=== PATIENT | male | born 1975 | race Caucasian/White ===

== ENCOUNTER → 2017-01-21 | Outpatient (CLI) | payer OTHER ==
[~2017-01-21] MED LIST: DAPS25TA2 PO; DOXY100C2 PO; MULT-608 PO; NEOM28.34 TP; SULF1TAB38 PO; SUMA100T2; SUMA1TAB; TRAM-21 PO; TRM50T PO; unknown antibiotic
--- NOTE | 2017-01-21 17:40 | Diagnostic Imaging Report ---
PROCEDURE: MRI left joint lower extremity without contrast. TECHNIQUE: Multiplanar, multisequence non contrast-enhanced MRI of the left lower extremity was accomplished. INDICATION: The patient was walking while reading meters; by the end of the day, he was unable to walk due to pain in posterior left ankle, Achilles tendon tear. FINDINGS: Noncontrast imaging of the left ankle demonstrates normal signal intensity in the Achilles tendon. No evidence of a tear is present. No joint effusion is present. Normal signal intensity is present in the osseous structures. Cartilage appears normal. The ligaments have a normal appearance. IMPRESSION: Normal MRI of the ankle. Dictated by: Dictated on workstation # [id number]
== END ==
LOC: RAD 16:37
PROVIDERS: ATTEND Internal Medicine
DX: M25.572 Pain in left ankle and joints of left foot (principal)
CPT/HCPCS: 73721

== ENCOUNTER 2018-05-05 13:46 | Emergency (ER) | payer OTHER ==
[~2018-05-05] VITALS: Ht 177.8 cm; Wt 86.2 kg
[2018-05-05] MEDS ORDERED: morphine INJ 10 MG/ML 1ML (SYR OR VIAL) ONE (13:58)
--- NOTE | 2018-05-05 14:06 | ED Upper Extremity ---
General Chief Complaint: Laceration Stated Complaint: LEFT THUMB/INDEX FINGER/PALM LAC Source: patient Exam Limitations: no limitations (JAHAIRA MONTAGUE MD) History of Present Illness Date Seen by Provider: May 05, 2018 Time Seen by Provider: 14:05 Initial Comments The patient is a 42-year-old white male who presents to the emergency room after suffering a table saw injury to the left hand. He stated that he believed that to be the left thumb primarily involved. Onset: just prior to arrival Pain/Injury Location: left thumb, left 2nd finger, left 3rd finger (JAHAIRA MONTAGUE MD) Allergies and Home Medications Allergies Coded Allergies: cephalexin (Unverified Allergy, Mild, 04/14/09) amoxicillin (Unverified Allergy, Unknown, 05/05/18) clavulanic acid (Unverified Allergy, Unknown, 05/05/18) Home Medications Dapsone 25 Mg Tablet, 2 EACH PO BID Prescribed by: ROBBIE CASTILLO on 06/16/131740 Doxycycline Hyclate 100 Mg Capsule, 1 EACH PO BID Prescribed by: ROBBIE CASTILLO on 06/16/131740 Multivitamins 1 Tab Tablet, 1 TAB PO DAILY, (Reported) Neomycn/Baci Zn/Pmyx Bs/Pramox 28.3 Gm Oint..gm., 28.3 GM TP BID, (Reported) Tramadol Hcl 50 Mg Tab, 50 MG PO Q4H Prescribed by: ROBBIE CASTILLO on 06/16/131740 Patient Home Medication List Home Medication List Reviewed: Yes (JAHAIRA MONTAGUE MD) Constitutional: see HPI EENTM: no symptoms reported Respiratory: no symptoms reported Cardiovascular: no symptoms reported Gastrointestinal: no symptoms reported (JAHAIRA MONTAGUE MD) Past Vqjcmvd-Bxqpqx-Quzttq Hx Immunizations Up To Date Tetanus Booster (TDap): Less than 5yrs (JAHAIRA MONTAGUE MD) Past Medical History Reproductive Disorders: No (JAHAIRA MONTAGUE MD) Physical Exam Vital Signs Vital Signs - First Documented 05/05/18 13:50 Temp 97.4 Pulse 90 Resp 17 B/P (MAP) 165/115 (132) O2 Delivery Room Air (MICHAEL LIAO APRN) Vital Signs Capillary Refill : (JAHAIRA MONTAGUE MD) General Appearance: other (the patient is pale and hyperventilating to a degree ) HEENT: normal ENT inspection Neck: full range of motion Cardiovascular: regular rate, rhythm, no edema, no gallop, no JVD, no murmur Respiratory: chest non-tender, lungs clear, normal breath sounds, no respiratory distress Comments The patient's home apply dressings were removed. This increased his pain and bleeding. The left thumb showed to be hanging distally by a skin flap. There was a laceration to the left thenar eminence which did not appear so deep. At least fingers 2 and 3 more involved as well. Exam was discontinued at that point in order to achieve better pain control. Mr. Liao is going to attempt a wrist block in order that we might better visualize the other wounds. (JAHAIRA MONTAGUE MD) Procedures/Interventions using 7 mL ofbupivacaine and 7 mL of lidocaine mixed one-to-one I did a left radial nerve block at the wrist, left median nerve block at the wrist, left ulnar nerve block at the wrist. I then did a digital block of the thumb and the pointer finger. This achieved wonderful pain control. (MICHAEL LIAO APRN) Progress/Results/Core Measures Results/Orders My Orders Orders - MICHAEL LIAO APRN Lidocaine 2% Injection 20 Ml (Xylocaine (05/05/18 14:30) Bupivacaine 0.5% Injection (Sensorcaine (05/05/18 14:30) (MICHAEL LIAO APRN) Medications Given in ED Current Medications Medications Dose Ordered Sig/Lainey Route Start Time Stop Time Status Last Admin Dose Admin Bupivacaine HCl 30 ml ONCE ONCE INJ 05/05/18 14:30 05/05/18 14:31 DC 05/05/18 14:33 30 ML Lidocaine HCl 20 ml ONCE ONCE INJ 05/05/18 14:30 05/05/18 14:31 DC 05/05/18 14:33 20 ML Morphine Sulfate 10 mg STK-MED ONCE .ROUTE 05/05/18 13:58 05/05/18 14:00 DC 05/05/18 14:02 10 MG (MICHAEL LIAO APRN) Vital Signs/I&O 05/05/18 13:50 Temp 97.4 Pulse 90 Resp 17 B/P (MAP) 165/115 (132) O2 Delivery Room Air (MICHAEL LIAO APRN) Departure Communication (Admissions) After initial evaluation. Mr. Liao did digital and risk blocks. We were then better able to evaluate the hand. The most severe wound appeared to be that that at the interphalangeal joint of the thumb. It appeared that the wound at the PIP joint on the index finger had gotten extensor tendons. The thumb exhibited blanching and capillary refill at the tip. The index finger did also. Subsequently significant bleeding occurred at the wound on the index finger. This required a digital tourniquet. And the bleeding was controlled at least temporarily. The hand was cleaned up and x-rayed. The gross findings appeared to be true with extensive damage done at the IP joint on the thumb. Subsequently attempts were made to find a hand surgeon. Ultimately I spoke to Dr. Ardon at [place]. He had suggested that splinting and dressing methods. Reexamination showed that bleeding to continue to be a problem and I then talked to Dr. ESPARZA again and he came to the ER to evaluate the situation he agreed that it would be a much better circumstance to arrange surgery tonight and he called Dr. Ardon and after further discussion it was agreed that he would be transferred for surgery tonight at [facility]. 174 (JAHAIRA MONTAGUE MD) Impression Primary Impression: table saw lacerations to left hand Disposition: 02 XFER SHT-TRM HOSP Condition: Stable/Unchanged Transfer Time Spoke to Accepting Phy: 16:40 Transfer Progress Notes After Dr. ESPARZA discussed transfer with Dr. Ardon at [place] it was agreed that he would be transferred by ambulance with anticipated surgery directly on arrival at [place]. Method of Transfer: EMS (JAHAIRA MONTAGUE MD) Departure-Patient Inst. Referrals: KYLAH GONZALEZ DO (PCP/Family) Primary Care Physician JAHAIRA MONTAGUE MD May 05, 2018 14:06 MICHAEL LIAO APRN May 05, 2018 14:47
[2018-05-05] MEDS ORDERED: LIDOCAINE 2% 20 ML (XYLOCAINE) VIAL INJ ONE (14:30)
[2018-05-05] MEDS ORDERED: BUPIVACAINE 0.5% 30 ML (SENSORCAINE) VIAL INJ ONE ×2 (14:30→16:45)
[2018-05-05] MEDS ORDERED: fentaNYL INJECTION 100 MCG/2 ML AMP ONE (14:36)
[2018-05-05] MEDS ORDERED: NS IV 1000 ML 1,000 ML ONE (14:36)
[2018-05-05] MEDS ORDERED: fentaNYL INJECTION 100 MCG/2 ML AMP IVP PRN ×2 (14:45→16:00)
[2018-05-05] MEDS ORDERED: NS IV 1000 ML 1,000 ML IV SCH ×2 (14:45→17:37)
--- NOTE | 2018-05-05 15:42 | Diagnostic Imaging Report ---
INDICATION: Injury to left hand. FINDINGS: Single AP view of the left hand obtained. There is dislocation of the second PIP joint with apparent soft tissue laceration. There is soft tissue gas over the space between the first and second metatarsals. There is a fracture dislocation of the first distal phalanx at the interphalangeal joint. There is no radiopaque foreign body. IMPRESSION: Dislocation of the second PIP joint with soft tissue laceration. Fracture dislocation of the first distal phalanx at the interphalangeal joint. Dictated by: Dictated on workstation # [id number]
[2018-05-05 17:30] LABS: BASOPHILS % (AUTO) 0 % (0-10); EOSINOPHILS % (AUTO) 1 % (0-10); LYMPHOCYTES # (AUTO) 2.1 X 10^3 (1.0-4.0); LYMPHOCYTES % (AUTO) 37 % (12-44); MEAN CORPUSCULAR HGB CONC 35 G/DL (32-36); MEAN CORPUSCULAR VOLUME 94 FL (80-99); MEAN PLATELET VOLUME 10.5 FL (7.4-10.4); MONOCYTES # (AUTO) 0.2 X 10^3 (0.0-1.0); MONOCYTES % (AUTO) 3 % (0-12); NEUTROPHILS # (AUTO) 3.2 X 10^3 (1.8-7.8); NEUTROPHILS % (AUTO) 59 % (42-75); RED CELL DISTRIBUTION WIDTH 12.4 % (10.0-14.5)
[2018-05-05 17:36] LABS: HEMATOCRIT 36 % (40-54); HEMOGLOBIN 12.5 G/DL (13.3-17.7); MEAN CORPUSCULAR HEMOGLOBIN 32 PG (25-34); PLATELET COUNT 24 10^3/uL (130-400); RED BLOOD COUNT 3.85 10^6/uL (4.35-5.85); WHITE BLOOD COUNT 6.1 10^3/uL (4.3-11.0)
[2018-05-05 17:48] VITALS: BP 108/73
--- NOTE | 2018-05-05 18:19 | Consultation ---
History of Present Illness History of Present Illness Patient Consulted On(kaia/time) 05/05/18 18:14 Time Seen by Provider: 17:01 History of Present Illness Surgery asked to consult regarding laceration to left hand. HPI per ED: The patient is a 42-year-old white male who presents to the emergency room after suffering a table saw injury to the left hand. He stated that he believed that to be the left thumb primarily involved. Onset: just prior to arrival Pain/Injury Location: left thumb, left 2nd finger, left 3rd finger When I saw pt he had already had wrist and digit blocks and he had a BP cuff on forearm acting as a tourniquet. His pain was mostly controlled but still needing Fentanyl. Pt stated he felt a little sweaty, but otherwise ok. He states he was cutting a board and not sure whether it jumped or not and then cut his hand. His family members said there was a lot of blood at home and ER nurse states they cleaned up two large pools of blood from floor already. He stated he has no feeling in the first three digits of his left hand; not sure whether this was before or after anesthesia used to block area. Pt has no other complaints. Allergies and Home Medications Allergies Coded Allergies: cephalexin (Unverified Allergy, Mild, 04/14/09) amoxicillin (Unverified Allergy, Unknown, 05/05/18) clavulanic acid (Unverified Allergy, Unknown, 05/05/18) Home Medications Dapsone 25 Mg Tablet, 2 EACH PO BID Prescribed by: ROBBIE CASTILLO on 06/16/131740 Doxycycline Hyclate 100 Mg Capsule, 1 EACH PO BID Prescribed by: ROBBIE CASTILLO on 06/16/131740 Multivitamins 1 Tab Tablet, 1 TAB PO DAILY, (Reported) Neomycn/Baci Zn/Pmyx Bs/Pramox 28.3 Gm Oint..gm., 28.3 GM TP BID, (Reported) Tramadol Hcl 50 Mg Tab, 50 MG PO Q4H Prescribed by: ROBBIE CASTILLO on 06/16/131740 Patient Home Medication List Home Medication List Reviewed: Yes Past Rtjodtf-Ugvcur-Ycyzyk Hx Patient Social History Alcohol Use: Occasionally Uses Recreational Drug Use: Yes (NONE IN 14 YRS) 2nd Hand Smoke Exposure: No Recent Foreign Travel: No Contact w/Someone Who Travel: No Recent Infectious Disease Expo: No Immunizations Up To Date Tetanus Booster (TDap): Less than 5yrs Surgeries History of Surgeries: Yes Respiratory History of Respiratory Disorde: No Cardiovascular History of Cardiac Disorders: No Neurological History of Neurological Disord: No Reproductive System Hx Reproductive Disorders: No Gastrointestinal History of Gastrointestinal Di: No Musculoskeletal History of Musculoskeletal Dis: Yes (R SHOULDER) Endocrine History of Endocrine Disorders: No Cancer History of Cancer: No Blood Transfusions History of Blood Disorders: No Family Medical History Significant Family History: Diabetes (father) Review of Systems-General Constitutional: chills, diaphoresis EENTM: No blurred vision, No eye pain, No mouth pain, No mouth swelling Respiratory: No cough, No dyspnea on exertion Cardiovascular: No chest pain, No edema, No palpitations Gastrointestinal: No abdominal pain, No constipation, No diarrhea Genitourinary: No dysuria, No frequency, No hematuria Musculoskeletal: see HPI Skin: No change in color, No change in hair/nails Psychiatric/Neurological: Denies Headache, Denies Pre-Existing Deficit, Denies Seizure, Denies Tremors Other Pt denies any history of abnormal bleeding or bruising, denies any heat or cold intolerance Physical Exam-General Problems Physical Exam Vital Signs Vital Signs - First Documented 05/05/18 13:50 Temp 97.4 Pulse 90 Resp 17 B/P (MAP) 165/115 (132) O2 Delivery Room Air Capillary Refill : Less Than 3 Seconds General Appearance: WD/WN, moderate distress Eyes: Bilateral Eye PERRL, Bilateral Eye EOMI HEENT: pharynx normal; No scleral icterus (R), No scleral icterus (L), No pale conjunctivae (R), No pale conjunctivae (L) Neck: non-tender, full range of motion, supple, normal inspection Respiratory: chest non-tender, lungs clear, normal breath sounds, no respiratory distress, no accessory muscle use Cardiovascular: regular rate, rhythm, no edema, no gallop, no murmur Gastrointestinal: normal bowel sounds, non tender, soft, no organomegaly, no pulsatile mass Back: no CVA tenderness, no vertebral tenderness Extremities: no pedal edema, no calf tenderness, normal capillary refill, other (patient has a large laceration to the left thenar eminence as well as a laceration to the thumb and the digit is not attached on the volar aspect also volar laceration of the first finger curving around the finger and a small laceration to the middle finger; hands are swollen but he has good capillary refill in all of his digits.) 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, no motor/sensory deficits, alert, normal mood/affect, oriented x 3 Skin: normal color, warm/dry Lymphatic: no adenopathy (neck, axilla or groin) Data Review Labs Laboratory Tests 05/05/18 17:15: White Blood Count 6.1, Red Blood Count 3.85L, Hemoglobin 12.5L, Hematocrit 36L, Mean Corpuscular Volume 94, Mean Corpuscular Hemoglobin 32, Mean Corpuscular Hemoglobin Concent 35, Red Cell Distribution Width 12.4, Platelet Count 24*L, Mean Platelet Volume 10.5H, Neutrophils (%) (Auto) 59, Lymphocytes (%) (Auto) 37 , Monocytes (%) (Auto) 3, Eosinophils (%) (Auto) 1, Basophils (%) (Auto) 0, Neutrophils # (Auto) 3.2, Lymphocytes # (Auto) 2.1, Monocytes # (Auto) 0.2, Eosinophils # (Auto) 0.0, Basophils # (Auto) 0.0 Assessment/Plan Assessment/Plan Assessment/Plan Laceration to Left Thenar [place], Left Thumb, pointer finger and middle finger Thrombocytopenia Acute Blood loss I looked at his hand and at the time it was still bleeding his he became slightly hypotensive dropped into the 80s and then went back up to the 90s and I believed that this needed to be taken care of surgically by hand surgeon right now. I spoke with Dr. Ardon and convinced him to please take him today to do this and so patient was transferred via ambulance to [place] to go directly to the OR. SHERON ESPARZA DO May 05, 2018 18:19
== END 2018-05-05 17:48 | disposition short-term general hospital (02) ==
LOC: EDUNIT# 13:46 → ER 13:48
DX: S61.412A Laceration without foreign body of left hand, initial encounter (principal); Z88.1 Allergy status to other antibiotic agents; W27.8XXA Contact with other nonpowered hand tool, initial encounter
CPT/HCPCS: 36415; 64450; 73120; 85025; 96361; 96374; 96375; 96376

== ENCOUNTER → 2018-10-21 | Outpatient (CLI) | payer OTHER ==
[2018-10-21 17:02] LABS: BASOPHILS % (AUTO) 0 % (0-10); EOSINOPHILS # (AUTO) 0.3 10^3/uL (0.0-0.3); EOSINOPHILS % (AUTO) 4 % (0-10); HEMATOCRIT 44 % (40-54); HEMOGLOBIN 15.6 G/DL (13.3-17.7); LYMPHOCYTES # (AUTO) 2.1 X 10^3 (1.0-4.0); LYMPHOCYTES % (AUTO) 26 % (12-44); MEAN CORPUSCULAR HEMOGLOBIN 32 PG (25-34); MEAN CORPUSCULAR HGB CONC 35 G/DL (32-36); MEAN CORPUSCULAR VOLUME 90 FL (80-99); MEAN PLATELET VOLUME 9.5 FL (7.4-10.4); MONOCYTES # (AUTO) 0.9 X 10^3 (0.0-1.0); MONOCYTES % (AUTO) 11 % (0-12); NEUTROPHILS # (AUTO) 4.8 X 10^3 (1.8-7.8); NEUTROPHILS % (AUTO) 59 % (42-75); PLATELET COUNT 290 10^3/uL (130-400); RED BLOOD COUNT 4.89 10^6/uL (4.35-5.85); RED CELL DISTRIBUTION WIDTH 14.5 % (10.0-14.5); WHITE BLOOD COUNT 8.1 10^3/uL (4.3-11.0)
[2018-10-21 17:17] LABS: ALANINE AMINOTRANSFERASE 39 U/L (0-55); ALBUMIN 4.6 GM/DL (3.2-4.5); ALKALINE PHOSPHATASE 151 U/L (40-136); BILIRUBIN,TOTAL 0.7 MG/DL (0.1-1.0); BUN/CREATININE RATIO 16; CALCIUM 10.1 MG/DL (8.5-10.1); CARBON DIOXIDE 20 MMOL/L (21-32); CHLORIDE 103 MMOL/L (98-107); CREATININE SERUM 1.15 MG/DL (0.60-1.30); GFR ESTIMATED > 60; GLUCOSE 94 MG/DL (70-105); POTASSIUM 4.3 MMOL/L (3.6-5.0); SODIUM 136 MMOL/L (135-145); TOTAL PROTEIN 7.8 GM/DL (6.4-8.2)
== END ==
LOC: LAB 16:42
PROVIDERS: ATTEND Nurse Practitioner Family
DX: R29.810 Facial weakness (principal)
CPT/HCPCS: 36415; 80053; 85025; 86618; 86666; 86668; 86757

== ENCOUNTER 2019-11-05 10:26 | Emergency (ER) | payer OTHER ==
[~2019-11-05] VITALS: Ht 177 cm; Wt 84.0 kg
--- NOTE | 2019-11-05 10:53 | ED Upper Extremity ---
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 History of pointer finger and thumb injury from table saw about a year ago. He is unable to flex the pointer finger at the PIP joint today. Onset: just prior to arrival Severity: moderate Pain/Injury Location: left 2nd finger Modifying Factors: Worse With Movement Allergies and Home Medications Allergies Coded Allergies: cephalexin (Unverified Allergy, Mild, 04/14/09) amoxicillin (Unverified Allergy, Unknown, 05/05/18) clavulanic acid (Unverified Allergy, Unknown, 05/05/18) Home Medications Dapsone 25 Mg Tablet, 2 EACH PO BID Prescribed by: ROBBIE CASTILLO on 06/16/131740 Doxycycline Hyclate 100 Mg Capsule, 1 EACH PO BID Prescribed by: ROBBIE CASTILLO on 06/16/131740 Multivitamins 1 Tab Tablet, 1 TAB PO DAILY, (Reported) Neomycn/Baci Zn/Pmyx Bs/Pramox 28.3 Gm Oint..gm., 28.3 GM TP BID, (Reported) Tramadol Hcl 50 Mg Tab, 50 MG PO Q4H Prescribed by: ROBBIE CASTILLO on 06/16/131740 Patient Home Medication List Home Medication List Reviewed: Yes Review of Systems Constitutional: see HPI EENTM: see HPI Respiratory: no symptoms reported Cardiovascular: no symptoms reported Genitourinary: no symptoms reported Musculoskeletal: see HPI Skin: no symptoms reported Psychiatric/Neurological: No Symptoms Reported Past Iwkdnph-Gohfsr-Hxdycv Hx Patient Social History 2nd Hand Smoke Exposure: No Recent Foreign Travel: No Contact w/Someone Who Travel: No Immunizations Up To Date Tetanus Booster (TDap): Less than 5yrs Past Medical History Surgeries: Yes Respiratory: No Cardiac: No Neurological: No Reproductive Disorders: No Gastrointestinal: No Musculoskeletal: Yes (R SHOULDER) Endocrine: No Cancer: No Blood Disorders: No Family Medical History Diabetes Physical Exam Vital Signs Vital Signs - First Documented 11/05/19 10:51 Temp 36.4 Pulse 100 Resp 16 B/P (MAP) 29/86 (67) Pulse Ox 95 Capillary Refill : Height, Weight, BMI Height: 5'10.00" Weight: 190lbs. oz. 86.192979ei; BMI Method:Stated General Appearance: WD/WN, no apparent distress HEENT: PERRL/EOMI, normal ENT inspection Cardiovascular: regular rate, rhythm, no murmur Respiratory: no respiratory distress, no accessory muscle use Gastrointestinal: non tender, soft Shoulder: normal inspection, non-tender Elbow/Forearm: normal inspection, non-tender Hand: Left, limited ROM (the DIP joint remains in partial flexion but he states this has been normal since his injury from a table saw about a year ago. He is unable to extend at the DIP joint. This again is normal from the injury about a year ago with a table saw. Today he is unable to flex the PIP joint due to pain. This is a new finding. He keeps it held in full extension. ) Neurologic/Tendon: normal sensation, tendon function deficit (suspect injury to the flexor digitorum superficialis at its insertion site.) Neurologic/Psychiatric: alert, normal mood/affect, oriented x 3 Skin: normal color, warm/dry Progress/Results/Core Measures Results/Orders My Orders Orders - MICHAEL LANDEROS APRN Hand, Left, 3 Views (11/05/19 10:46) Vital Signs/I&O 11/05/19 10:51 Temp 36.4 Pulse 100 Resp 16 B/P (MAP) 29/86 (67) Pulse Ox 95 Departure Communication (Admissions) NAME: DANIEL BLAS MED REC#: [id number] PT STATUS: REG ER : 1975 PHYSICIAN: MICHAEL LANDEROS APRN ADMIT DATE: 11/05/19/ER Signed Date of Exam:11/05/19 HAND, LEFT, 3 VIEWS INDICATION: Pain. COMPARISON: May 05, 2018. TECHNIQUE: Three radiographs of the left hand dated November 05, 2019. FINDINGS: Chronic fracturing of the first digit distal phalanx is identified. There are now degenerative changes associated with the first digit interphalangeal joint. However, the first interphalangeal joint now appears to better align when compared to the prior examination. Irregularity is noted associated with the base of the second digit middle phalanx. No definite discrete fracture plane is noted. Joint space narrowing of the second digit interphalangeal joint is present with slight irregularity of the head of the second digit proximal phalanx. Soft tissue swelling of the second digit is present. No definite acute fracture or dislocation. No suspicious radiopaque foreign body. IMPRESSION: Abnormal appearance of the second digit proximal phalanx with associated soft tissue swelling. 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 Chronic fracturing of the first digit with associated developing degenerative changes of the first interphalangeal joint. Dictated by: Dictated on workstation # [id number] Dict: 11/05/19 1104 Trans: 11/05/19 1112 [id number] Interpreted by: JERONIMO REID MD Electronically signed by: JERONIMO REID MD 11/05/19 1112 Impression Primary Impression: flexor tendon injury of finger Additional Impression: Strain of flexor digitorum superficialis tendon Disposition: 01 HOME, SELF-CARE Condition: Improved Departure-Patient Inst. Decision time for Depature: 11:15 Referrals: BRYSON CHING WILLIAM J DO (PCP/Family) Primary Care Physician Patient Instructions: Common Finger Injuries Add. Discharge Instructions: 1. Wear the splint at all times except when showering for the next 2-3 weeks or until released by orthopedics. Call orthopedic surgeon of your choosing on Wednesday to make an appointment for follow-up, sometimes these flexor tendon injuries do need to be repaired surgically. Copy Copies To 1: KYLAH GONZALEZ PETER J APRN Nov 05, 2019 10:53
--- NOTE | 2019-11-05 11:12 | Diagnostic Imaging Report ---
INDICATION: Pain. COMPARISON: May 05, 2018. TECHNIQUE: Three radiographs of the left hand dated November 05, 2019. FINDINGS: Chronic fracturing of the first digit distal phalanx is identified. There are now degenerative changes associated with the first digit interphalangeal joint. However, the first interphalangeal joint now appears to better align when compared to the prior examination. Irregularity is noted associated with the base of the second digit middle phalanx. No definite discrete fracture plane is noted. Joint space narrowing of the second digit interphalangeal joint is present with slight irregularity of the head of the second digit proximal phalanx. Soft tissue swelling of the second digit is present. No definite acute fracture or dislocation. No suspicious radiopaque foreign body. IMPRESSION: Abnormal appearance of the second digit proximal phalanx with associated soft tissue swelling. 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 Chronic fracturing of the first digit with associated developing degenerative changes of the first interphalangeal joint. Dictated by: Dictated on workstation # [id number]
[2019-11-05 11:33] VITALS: BP 126/87
== END 2019-11-05 11:33 | disposition home or self-care (01) ==
LOC: EDUNIT# 10:26 → ER 10:27
DX: S66.111A Strain of flexor muscle, fascia and tendon of left index finger at wrist and hand level, initial encounter (principal); Z88.1 Allergy status to other antibiotic agents; Z88.0 Allergy status to penicillin; Z87.828 Personal history of other (healed) physical injury and trauma; X50.0XXA Overexertion from strenuous movement or load, initial encounter; Y92.59 Other trade areas as the place of occurrence of the external cause
CPT/HCPCS: 29130; 73130

== ENCOUNTER 2020-11-10 05:46 | Emergency (ER) | payer OTHER ==
[~2020-11-10] VITALS: Ht 177.8 cm; Wt 86.2 kg
[2020-11-10] MEDS ORDERED: RT-ALBUTEROL INHALER HFA (VENTOLIN HFA) 18 GM IH ONE (06:38)
--- NOTE | 2020-11-10 06:46 | ED Respiratory ---
General Chief Complaint: Head/Cervical Problems Stated Complaint: DIZZINESS,HEADACHE,FEVER,CHILLS Nursing Triage Note: PT AMBULATE TO ROOM 10 WITH C/O HEADACHE, DIZZINESS, SOB STARTING LAST NIGHT. PT REPORTS TAKING ALEVE WITHOUT RELIEF. (NATHALIA HIGH MED STUDENT) History of Present Illness Date Seen by Provider: Nov 10, 2020 Time Seen by Provider: 06:30 Initial Comments This is a 45 y/o M who presents to the Emergency Department via ambulation with a chief complaint of headach, dizziness, short of breath, cough, and chills that started last night. His mouth felt dry yesterday and felt like he couldn't get enough to drink with water and Gatorade. He denies nausea and vomiting. His blood pressure in the room was 160/106 and a heart rate of 124 but he denies that his baselines are normally that elevated. He has no significant medical health problems and has had reconstructive shoulder surgery. On physical exam, the patient was breathing in and out in a slow controlled fashion. He states that he becomes wheezy if he doesn't breath slowly and denies a history of asthma. When asked to force his expiration, it takes about 3 seconds. The patient has no known Covid contact exposures. (NATHALIA HIGH MED STUDENT) Allergies and Home Medications Allergies Coded Allergies: cephalexin (Unverified Allergy, Mild, 04/14/09) amoxicillin (Unverified Allergy, Unknown, 05/05/18) clavulanic acid (Unverified Allergy, Unknown, 05/05/18) Home Medications Dapsone 25 Mg Tablet, 2 EACH PO BID Prescribed by: ROBBIE CASTILLO on 06/16/131740 Doxycycline Hyclate 100 Mg Capsule, 1 EACH PO BID Prescribed by: ROBBIE CASTILLO on 06/16/131740 Multivitamins 1 Tab Tablet, 1 TAB PO DAILY, (Reported) Neomycn/Baci Zn/Pmyx Bs/Pramox 28.3 Gm Oint..gm., 28.3 GM TP BID, (Reported) Tramadol Hcl 50 Mg Tab, 50 MG PO Q4H Prescribed by: ROBBIE CASTILLO on 06/16/131740 Patient Home Medication List Home Medication List Reviewed: Yes (WOLF DIXON MD) Review of Systems Review of Systems Constitutional: chills, dizziness Respiratory: cough, short of breath Psychiatric/Neurological: Headache (NATHALIA HIGH STUDENT) Cardiovascular: see HPI Gastrointestinal: no symptoms reported Genitourinary: no symptoms reported Musculoskeletal: no symptoms reported Skin: no symptoms reported Psychiatric/Neurological: See HPI Hematologic/Lymphatic: No Symptoms Reported Immunological/Allergic: no symptoms reported (WOLF DIXON MD) Past Bvophnj-Dfnntq-Pzxtjs Hx Past Med/Social Hx: Reviewed Nursing Past Med/Soc Hx (WOLF DIXON MD) Patient Social History Alcohol Use: Occasionally Uses Recreational Drug Use: Yes (NONE IN 14 YRS) Smoking Status: Never a Smoker 2nd Hand Smoke Exposure: No Recent Foreign Travel: No Contact w/Someone Who Travel: No Recent Infectious Disease Expo: No Physical Abuse: No Sexual Abuse: No Mistreated: No Fear: No (NATHALIA HIGH) Immunizations Up To Date Tetanus Booster (TDap): Less than 5yrs (NATHALIA HIGH) Past Medical History Surgeries: Yes (l index finger, l thumb, r shoulder) Respiratory: No Cardiac: No Neurological: No Reproductive Disorders: No Genitourinary: No Gastrointestinal: No Musculoskeletal: Yes (R SHOULDER) Endocrine: No Cancer: No Blood Disorders: No (NATHALIA HIGH) Family Medical History Diabetes (NATHALIA HIGH) Physical Exam Vital Signs - First Documented 11/10/20 11/10/20 06:21 07:53 Temp 35.8 Pulse 86 Resp 17 B/P (MAP) 160/106 (124) Pulse Ox 98 O2 Delivery Room Air (WOLF DIXON MD) Capillary Refill : Less Than 3 Seconds (NATHALIA HIGH STUDENT) Height: 5'10.00" Weight: 190lbs. oz. 86.189018at; 27.00 BMI Method:Stated (NATHALIA HIGH STUDENT) General Appearance: WD/WN, no apparent distress HEENT: PERRL/EOMI, normal ENT inspection, TMs normal, other (Oropharynx pasty) Neck: normal inspection Respiratory: lungs clear, no respiratory distress, no accessory muscle use, other (Prolonged expiratory phase) Cardiovascular: regular rate, rhythm, no edema, no murmur Gastrointestinal: normal bowel sounds, non tender, soft Extremities: normal inspection, no pedal edema Neurologic/Psychiatric: chaser helper II-XII nml as tested, no motor/sensory deficits, alert, normal mood/affect, oriented x 3 Skin: normal color, warm/dry (WOLF DIXON MD) Progress/Results/Core Measures Suspected Sepsis Recent Fever Within 48 Hours: No Infection Criteria Present: None New/Unexplained Altered Menta: No Sepsis Screen: No Definite Risk SIRS Temperature: Pulse: 86 Respiratory Rate: 17 Blood Pressure 160 /106 Mean: 124 (NATHALIA HIGH MED STUDENT) Results/Orders Lab Results Laboratory Tests Test 11/10/20 06:30 11/10/20 07:47 Range/Units Coronavirus 2019 (JUAN) Negative Negative (WOLF DIXON MD) Micro Results Microbiology 11/10/20 Influenza Types A,B Antigen (JUNIOR) - Final, Complete (WOLF DIXON MD) My Orders Orders - WOLF DIXON MD Influenza A And B Antigens (11/10/20 06:19) Covid 19 Inhouse Test (11/10/20 06:19) Albuterol Inhaler (Ventolin Hfa) (11/10/20 10:00) Albuterol Inhaler (Ventolin Hfa) (11/10/20 06:38) Coronavirus Sars-Cov-2 So 2018 (11/10/20 07:37) (WOLF DIXON MD) Vital Signs/I&O 11/10/20 11/10/20 06:21 07:53 Temp 35.8 Pulse 86 79 Resp 17 16 B/P (MAP) 160/106 (124) 148/98 Pulse Ox 98 O2 Delivery Room Air Room Air (WOLF DIXON MD) Vital Signs/I&O Capillary Refill : Less Than 3 Seconds (NATHALIA HIGH MED STUDENT) Blood Pressure Mean: 124 Progress Note : Time: 06:40 Progress Note - The patient was breathing in and out in a slow controlled manner. His forced expiration duration was about 3 seconds. An albuterol inhaler with a space chamber has been ordered. He will be monitored for signs of improvement. A flu and rapid Covid swab have been ordered, results pending. (NATHALIA HIGH X MED STUDENT) Progress Note : Progress Note Patient's heart rate normalized with rest. He is states he has been well- hydrated and urinating often although his mouth feels pasty. His symptoms are flulike in nature. Rapid flu and rapid Covid were negative. A Covid PCR swab was obtained. His blood pressure was trending downward after arrival. He states he has been treated for hypertension in the past but was able to go off medications with weight loss and lifestyle changes. I have advised him to get his blood pressure checked at the clinic when he feels better. He may need to restart blood pressure medication. He has not been taking Tylenol and ibuprofen to treat his headache, and I have recommended he start using these eedw-umq-klchwqf medications. An inhaler was provided and he reports this improved his shortness of breath. (WOLF DIXON MD) Departure Impression Primary Impression: Flu-like symptoms Additional Impressions: Hypertension Qualified Codes: I10 - Essential (primary) hypertension Bronchospasm Disposition: 01 HOME, SELF-CARE Condition: Improved Departure-Patient Inst. Decision time for Depature: 07:39 (WOLF DIXON MD) Referrals: KYLAH GONZALEZ DO (PCP/Family) Primary Care Physician Patient Instructions: BRONCHOSPASM-ADULT Add. Discharge Instructions: Remain in quarantine until the results of your Covid PCR test is known. This should take no more than 48 hours. For pain and headache you may take ibuprofen up to 600 mg every 6 hours as needed and Tylenol (acetaminophen) up to 1000 mg every 6 hours as needed. Drink plenty of clear liquids to stay well-hydrated. Use your inhaler up to 4 puffs in a 4-hour period of time for shortness of breath or wheezing. Call or return to care with questions or concerns. Return to the emergency room if you have notable worsening of conditions. After you are feeling better, follow-up with your primary care provider for an additional blood pressure check. You may need to restart your blood pressure medications. All discharge instructions reviewed with patient and/or family. Voiced understanding. Work/School Note: Work Release Form Date Seen in the Emergency Department: Nov 10, 2020 Return to Work: Nov 12, 2020 Other Restrictions Listed Below: May return to work if Covid PCR negative and symptom free for 24 hours. Restrictions: If Covid PCR positive, follow health department instructions for quarantine Copy Copies To 1: KYLAH GONZALEZ ELIZABETH X MED STUDENT Nov 10, 2020 06:46 WOLF DIXON MD Nov 10, 2020 07:42
--- NOTE | 2020-11-10 06:57 | NUR ---
assumed care of the pt.
[2020-11-10 07:53] VITALS: BP 148/98
[2020-11-10] MEDS ORDERED: RT-ALBUTEROL INHALER HFA (VENTOLIN HFA) 18 GM IH SCH (10:00)
== END 2020-11-10 07:53 | disposition home or self-care (01) ==
LOC: EDUNIT# 05:46 → ER 05:48
DX: I10 Essential (primary) hypertension (principal); J98.01 Acute bronchospasm; R68.83 Chills (without fever); Z88.1 Allergy status to other antibiotic agents
CPT/HCPCS: 87804; 99283; U0002; 87635

== ENCOUNTER 2021-01-10 08:01 | Day surgery (SDC) | payer OTHER ==
[2021-01-10] VITALS (7 sets, daily range): BP systolic 95–147; BP diastolic 56–97
[~2021-01-10] VITALS: Ht 180.3 cm; Wt 86.2 kg
[2021-01-10] MEDS ORDERED: LACTATED RINGERS 1,000 ML IV ONE (08:24)
[2021-01-10] MEDS ORDERED: LACTATED RINGERS 1,000 ML IV STA (08:25)
[2021-01-10] MEDS ORDERED: HURRICAINE EXT TUBE (BENZOCAINE) XX PRN (08:30)
[2021-01-10] MEDS ORDERED: MIDAZOLAM 2 MG/2 ML (VERSED) VIAL ONE (08:46)
[2021-01-10] MEDS ORDERED: proPOfol 200 MG/20 ML (DIPRIVAN) VIAL IV ONE ×2 (08:46→09:44)
[2021-01-10] MEDS ORDERED: HURRICAINE EXT TUBE (BENZOCAINE) ONE (09:01)
[2021-01-10] MEDS ORDERED: LIDOCAINE JELLY 2% 6 ML SYRINGE ONE (09:01)
[2021-01-10] MEDS ORDERED: LIDOCAINE JELLY 2% 6 ML SYRINGE TOP ONE (09:30)
--- NOTE | 2021-01-10 09:31 | Pre-Op Note & Conscious Sedat ---
Pre-Operative Progress Note H&P Reviewed The H&P was reviewed, patient examined and no changes noted. Date H&P Reviewed: Jan 10, 2021 Time H&P Reviewed: 09:00 Conscious Sedation Pre-Proced ASA Score 1 For ASA 3 and 4: Consider anesthesia and medical clearance. Also, for patients with a history of failed moderate sedation consider anesthesia. Airway Lungs Heart ASA score ASA 1: a normal healthy patient ASA 2: a patient with a mild systemic disease (mid diabetes, controlled hypertension, obesity ASA 3: a patient with a severe systemic disease that limits activity (angina, COPD, prior Myocardial infarction) ASA 4: a patient with an incapacitating disease that is a constant threat to life (CHF, renal failure) ASA 5: a moribund patient not expected to survive 24 hrs. (ruptured aneurysm) ASA 6: a declared brain- patient whose organs are being harvested. For emergent operations, add the letter E after the classification Mallampati Classification Grade 2 Sedation Plan Analgesia, Amnesia, Plan communicated to team members, Discussed options with patient/fam, Discussed risks with patient/fam The patient is an appropriate candidate to undergo the planned procedure, sedation, and anesthesia. The patient immediately re-assessed prior to indication. BRYSON GILES MD Jan 10, 2021 09:31
--- NOTE | 2021-01-10 10:09 | Anesthesia-General Post-Op ---
MAC Patient Condition Mental Status/LOC: Same as Preop Cardiovascular: Satisfactory Nausea/Vomiting: Absent Respiratory: Satisfactory Pain: Controlled Complications: Absent Post Op Complications Complications None Follow Up Care/Instructions Patient Instructions None needed. Anesthesiology Discharge Order Discharge Order Patient is doing well, no complaints, stable vital signs, no apparent adverse anesthesia problems. No complications reported per nursing. CLAYTON GIMENEZ CRNA Jan 10, 2021 10:09
--- NOTE | 2021-01-10 14:59 | OPERATIVE REPORT ---
DATE OF SERVICE: EGD SUMMARY INDICATION FOR THE PROCEDURE: Epigastric pain, dysphagia, weight loss. DESCRIPTION OF PROCEDURE: The patient was placed in the left lateral decubitus position. The endoscope was inserted in the oral cavity and under direct visualization, esophagus was intubated. The endoscope was passed down the esophagus through the stomach and second portion of the duodenum. A careful inspection was made as the endoscope was withdrawn. The procedure was done under Diprivan based anesthesia. FINDINGS: The posterior pharynx, arytenoid aperture, true and false vocal folds and epiglottis were unremarkable. The proximal and mid esophagus were unremarkable. If there is evidence for LA grade D erosive esophagitis with stricturing about 1.5 cm in size. There were yellowish and whitish ulcerated plaques without evidence for nodularity or gross evidence to suggest underlying malignancy. No definitive gross inspection changes to suggest Goodwin's are noted; however, with the degree of inflammation, it could easily be missed. Biopsies were obtained. The GE junction was proximally placed secondary to moderate 3-4 cm hiatal hernia noted at 35 cm from the incisural orifice. The cardia and fundus of the stomach were unremarkable. There was some linear antral erythema noted without evidence for ulceration. Biopsy was obtained and submitted for histopathology. The pylorus, the pyloric channel were unremarkable. There are patchy areas of erythema without ulceration or erosion noted in the duodenal bulb as well as the second portion of the duodenum. Usual villous type architecture noted on gross inspection. ASSESSMENT AND PLAN: LA grade D erosive esophagitis with benign appearing 1.5 cm stricture was present. Biopsies were obtained and the patient was dilated using the 20 mm balloon dilators without difficulty. Brushings for fungal culture were obtained in addition to biopsies. Discussed non-reflux management in addition to increasing daily Nexium he had been taking for the past 2 weeks to b.i.d. Nexium. We will need to likely repeat EGD evaluation in 2 months provided that there is symptomatic improvement for surveillance purposes considering the significant nature of his erosive esophagitis. A moderate size 3-4 cm hiatal hernia is present. I thank you for the referral of this pleasant gentleman. Job ID: [id number] DocumentID: [id number] Dictated Date: 01/10/2021 10:15:58 Relocation Counselor Date: 01/10/2021 14:59:02 Dictated By: BRYSON GILES MD [facility]
--- NOTE | 2021-01-10 16:32 | HISTORY AND PHYSICAL ---
DATE OF SERVICE: EGD HISTORY AND PHYSICAL DATE OF ADMISSION: 01/10/2021. HISTORY OF PRESENT ILLNESS: The patient is a 45-year-old white male referred by Dr. Mills for urgent EGD due to evaluation of progressive dysphagia predominantly to solids for the past four weeks. His stools have become darker in color. He reports previous to four weeks ago, he only had rare reflux symptoms and has had no previous problems with dysphagia. He had sensation that food got stuck initially pointing to the upper throat area four weeks ago. He does not recall what he was eating, but he had to regurgitate it. After that, his pain has been more in the lower precordial and epigastric area with sensation of solids sticking. He has not had any other regurgitation symptoms. He believes he has lost about 10 pounds of weight over the past month and states that his stools have gotten darker some bordering on melena. He has noted no bright red blood. He has had no problems with cough. He does report odynophagia, predominantly in the epigastric area for the past several weeks. 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 He has been keeping liquids down, but reports a decrease in energy level, which he attributes to not being able to eat solids with weight loss. PAST MEDICAL HISTORY: Otherwise, noncontributory. Again, no previous reports of dysphagia or significant heartburn symptoms. He takes no medication other than the recent initiation of Nexium daily. He initially took a few aspirin after the onset of his epigastric and chest discomfort, but then stopped doing this. Previously, he had not been taking aspirin or nonsteroidal medication. PAST SURGICAL HISTORY: He had a flexor tendon injury, table saw left index finger and has had right shoulder surgery. No history of joint replacement. SOCIAL HISTORY: He has a 14 pack smoking pack year smoking history, but he quit six years ago. He reports moderate alcohol consumption roughly about a 6-pack per week, only beer consumption in regards to alcohol. He is a warehouse delivery manager. FAMILY HISTORY: He is not aware of any family history for GI tract malignancy. REVIEW OF SYSTEMS: CONSTITUTIONAL: No night sweats, chills or fever reported. Does note about a 10-pound weight loss over the past month. GASTROINTESTINAL: As noted in the HPI. PULMONARY: Denies cough, chest congestion or wheezing and no sputum production. CARDIOVASCULAR: He denies syncope, presyncope, orthopnea, PND, pedal edema or dyspnea on exertion. PHYSICAL EXAMINATION: GENERAL: Reveals a white male, anxious, but did not appear to be in acute distress. VITAL SIGNS: Blood pressure 130/80 and weight 187. HEENT: Unremarkable. NECK: Revealed no JVD, adenopathy or bruits. CHEST: Clear. CARDIOVASCULAR: Reveals regular rate and rhythm without murmur, S3 or S4. ABDOMEN: There is epigastric pain to palpation and right upper quadrant pain to palpation without rebound or guarding. No mass or organomegaly are noted. Bowel sounds are positive. EXTREMITIES: Reveal no cyanosis, clubbing or edema. ASSESSMENT AND PLAN: For further investigation of dysphagia predominantly to solids with weight loss and epigastric pain, the patient is being set up for EGD with potential dilatation to follow tomorrow, 01/10/2021 and instructions were given. The patient will go to the hospital for rapid COVID testing in the morning with EGD to follow. I thank you for the referral of this pleasant gentleman. Job ID: [id number] DocumentID: [id number] Dictated Date: 01/09/2021 16:28:18 Civil Rights Representative Date: 01/09/2021 16:55:34 Dictated By: BRYSON GILES MD
== END 2021-01-10 10:55 | disposition home or self-care (01) ==
LOC: ENDO 08:01
PROVIDERS: ATTEND Internal Medicine
DX: K22.2 Esophageal obstruction (principal); K20.90 Esophagitis, unspecified without bleeding; R63.4 Abnormal weight loss; K44.9 Diaphragmatic hernia without obstruction or gangrene; Z79.899 Other long term (current) drug therapy; Z88.1 Allergy status to other antibiotic agents; Z88.8 Allergy status to other drugs, medicaments and biological substances; Z87.891 Personal history of nicotine dependence
CPT/HCPCS: 88305; 88312

== ENCOUNTER → 2021-01-10 | Outpatient (CLI) | payer OTHER | LOC: LABNPT 07:36 | PROVIDERS: ATTEND Internal Medicine | DX: Z20.822 Contact with and (suspected) exposure to COVID-19 (principal) | CPT/HCPCS: 87101; U0002; 87635 ==

== ENCOUNTER 2021-03-05 05:31 | Outpatient (RCR) | payer OTHER ==
[~2021-03-05] VITALS: Ht 177.8 cm; Wt 84.9 kg
[~2021-03-05 05:31] MED LIST changes: +MULT-1136 PO; +NF-ESOM40C PO
== END 2021-03-06 10:26 | disposition home or self-care (01) ==
LOC: PREOP 05:31
PROVIDERS: ATTEND Internal Medicine
DX: Z01.812 Encounter for preprocedural laboratory examination (principal); K20.0 Eosinophilic esophagitis; Z20.822 Contact with and (suspected) exposure to COVID-19
CPT/HCPCS: 87635

== ENCOUNTER 2021-03-07 07:48 | Day surgery (SDC) | payer OTHER ==
--- NOTE | 2021-02-26 06:37 | HISTORY AND PHYSICAL ---
DATE OF SERVICE: EGD HISTORY AND PHYSICAL DATE OF ADMISSION: 03/07/2021 HISTORY OF PRESENT ILLNESS: The patient is a 45-year-old white male referred by Dr. Mills for EGD evaluation, which was originally performed on 01/10/2021. At that time, he had significant erosive esophagitis, LA grade IV with benign appearing stricture. There was enough inflammatory change, so could not rule out Goodwin's. Biopsies did not reveal evidence for Goodwin's, but there is a significant amount of inflammation. He is taking Nexium 40 mg twice a day and stopped Aleve. He is still having some nighttime symptoms, especially if he eats later despite taking Nexium around his evening meal. He reports good compliance with b.i.d. Nexium. He has had no dysphagia and has noted no melena or bright red blood per rectum. PHYSICAL EXAMINATION: GENERAL: Reveals a white male, did not appear to be in acute distress. VITAL SIGNS: Blood pressure 130/82. CHEST: Clear. CARDIOVASCULAR: Regular rate and rhythm without murmur, S3 or S4. ABDOMEN: Soft, supple without mass or organomegaly. He has some epigastric, left and right upper quadrant discomfort to palpation without rebound or guarding. Bowel sounds are positive. EXTREMITIES: Reveal no cyanosis, clubbing or edema. ASSESSMENT AND PLAN: Due to LA grade IV reflux changes with persistent symptoms despite b.i.d. Nexium, the patient will be set up for surveillance EGD. In the interim, discussed the importance of not eating 3 or 4 hours before lying down at night and if this cannot be done, we would take two Gaviscon at bedtime and also as needed for breakthrough symptoms. Continue to abstain from nonsteroidal medication and aspirin. The patient is set up for repeat EGD evaluation on 03/07/2021. Job ID: [id number] DocumentID: [id number] Dictated Date: 02/20/2021 13:58:47 Insurance Verifier Date: 02/20/2021 14:16:19 Dictated By: BRYSON GILES MD
[~2021-03-07] VITALS: Ht 177.8 cm; Wt 84.9 kg
[2021-03-07] MEDS ORDERED: LACTATED RINGERS 1,000 ML IV ONE (07:52)
[2021-03-07] MEDS ORDERED: LACTATED RINGERS 1,000 ML IV STA (07:57)
--- NOTE | 2021-03-07 07:58 | Pre-Op Note & Conscious Sedat ---
Pre-Operative Progress Note H&P Reviewed The H&P was reviewed, patient examined and no changes noted. Date H&P Reviewed: March 07, 2021 Time H&P Reviewed: 07:58 Conscious Sedation Pre-Proced ASA Score 2 For ASA 3 and 4: Consider anesthesia and medical clearance. Also, for patients with a history of failed moderate sedation consider anesthesia. Airway Lungs Heart ASA score ASA 1: a normal healthy patient ASA 2: a patient with a mild systemic disease (mid diabetes, controlled hypertension, obesity ASA 3: a patient with a severe systemic disease that limits activity (angina, COPD, prior Myocardial infarction) ASA 4: a patient with an incapacitating disease that is a constant threat to life (CHF, renal failure) ASA 5: a moribund patient not expected to survive 24 hrs. (ruptured aneurysm) ASA 6: a declared brain- patient whose organs are being harvested. For emergent operations, add the letter E after the classification Mallampati Classification Grade 2 Sedation Plan Analgesia, Amnesia, Plan communicated to team members, Discussed options with patient/fam, Discussed risks with patient/fam The patient is an appropriate candidate to undergo the planned procedure, sedation, and anesthesia. The patient immediately re-assessed prior to indication. BRYSON GILES MD March 07, 2021 07:58
[2021-03-07] MEDS ORDERED: HURRICAINE EXT TUBE (BENZOCAINE) XX PRN (08:00)
[2021-03-07] MEDS ORDERED: LIDOCAINE JELLY 2% 6 ML SYRINGE MM PRN (08:00)
[2021-03-07] MEDS ORDERED: PROPOFOL INJECTION 50 ML IV ONE (08:04)
[2021-03-07] MEDS ORDERED: MIDAZOLAM 2 MG/2 ML (VERSED) VIAL ONE (08:04)
[2021-03-07] MEDS ORDERED: HURRICAINE EXT TUBE (BENZOCAINE) ONE (08:08)
[2021-03-07 08:10] VITALS: BP 143/91
[2021-03-07 08:40] VITALS: BP 113/67
--- NOTE | 2021-03-07 08:40 | Anesthesia-General Post-Op ---
MAC Patient Condition Mental Status/LOC: Same as Preop Cardiovascular: Satisfactory Nausea/Vomiting: Absent Respiratory: Satisfactory Pain: Controlled Complications: Absent Post Op Complications Complications None Follow Up Care/Instructions Patient Instructions None needed. Anesthesiology Discharge Order Discharge Order Patient is doing well, no complaints, stable vital signs, no apparent adverse anesthesia problems. No complications reported per nursing. CLAYTON GIMENEZ CRNA March 07, 2021 08:40
[2021-03-07 08:45] VITALS: BP 110/68
[2021-03-07 08:50] VITALS: BP 124/80
[2021-03-07 08:55] VITALS: BP 124/80
[2021-03-07 09:12] VITALS: BP 132/78
--- NOTE | 2021-03-07 18:22 | OPERATIVE REPORT ---
DATE OF SERVICE: EGD SUMMARY INDICATION FOR THE PROCEDURE: Surveillance for LA grade IV erosive esophagitis. DESCRIPTION OF PROCEDURE: The patient was placed in the left lateral decubitus position. The endoscope was inserted in the oral cavity and under direct visualization, esophagus was intubated. The endoscope was passed down the esophagus through the stomach and second portion of the duodenum. Careful inspection was made as the endoscope was withdrawn. FINDINGS: Proximal and mid esophagus were unremarkable. Present in the distal esophagus were findings of erosive esophagitis without evidence for stricture formation characterized as LA grade B, indicative of some improvement from his last endoscopy six months. Questionable changes of short segment Goodwin's were noted. Biopsies were obtained and submitted for histopathology. The patient had evidence for sphincter laxity with a small hiatal hernia. The cardia and fundus of the stomach were unremarkable. There is some mild antral erythema again noted. Mild erythema without ulceration was noted in the duodenal bulb and the visualized portions of the second and proximal third portion of the duodenum, unchanged from last examination at which time no evidence for Helicobacter was noted. ASSESSMENT: Despite b.i.d. PPI therapy, the patient still has significant LA grade B esophagitis. Biopsies are pending. Considering this and duodenitis raises the possibility of Reynaldo-Huizar syndrome. The patient is being sent to the lab for a gastrin level, which I would expect under normal circumstances considering b.i.d. PPI therapy to be mildly elevated. If there is significant elevation, he will need further investigation to rule out gastrinoma/Reynaldo-Huizar syndrome. In the meantime, he will continue b.i.d. PPI therapy, Gaviscon at bedtime and p.r.n. during the day as needed. Job ID: [id number] DocumentID: [id number] Dictated Date: 03/07/2021 10:30:45 Armature Repairer Date: 03/07/2021 18:21:04 Dictated By: BRYSON GILES MD [facility]
== END 2021-03-07 09:29 | disposition home or self-care (01) ==
LOC: ENDO 07:48
PROVIDERS: ATTEND Internal Medicine
DX: K22.10 Ulcer of esophagus without bleeding (principal); K21.00 Gastro-esophageal reflux disease with esophagitis, without bleeding; K44.9 Diaphragmatic hernia without obstruction or gangrene; K22.8 Other specified diseases of esophagus; K31.89 Other diseases of stomach and duodenum; Z88.1 Allergy status to other antibiotic agents; Z88.8 Allergy status to other drugs, medicaments and biological substances; Z87.891 Personal history of nicotine dependence; Z79.899 Other long term (current) drug therapy; Z20.822 Contact with and (suspected) exposure to COVID-19